=== PATIENT | male | born 1980 | race Caucasian/White ===

== ENCOUNTER 2017-05-13 02:54 | Emergency (ER) | payer SELFPAY ==
[~2017-05-13] VITALS: Ht 185.4 cm; Wt 81.6 kg
[2017-05-13] MEDS ORDERED: LIDOCAINE 1% INJ 20 ML (XYLOCAINE) VIAL INJ ONE (03:45)
[2017-05-13] MEDS ORDERED: ONDANSETRON 4 MG (ZOFRAN) ORAL DISSOLVE TAB ONE (03:51)
[2017-05-13] MEDS ORDERED: ONDANSETRON 4 MG (ZOFRAN) ORAL DISSOLVE TAB PO ONE (04:15)
--- NOTE | 2017-05-13 04:40 | ED General ---
General Chief Complaint: Laceration Stated Complaint: RT FINGER LAC Nursing Triage Note: right index finger laceration Nursing Sepsis Screen: No Definite Risk Source of Information: Patient Exam Limitations: No Limitations History of Present Illness Time Seen by Provider: 03:31 Initial Comments This 36-year-old gentleman presents to the emergency room with a flap laceration to the dorsum of the right index finger. He was drilling a bracket that was not secure. The bracket flung loose causing the laceration on the finger. He reports being up-to-date on his tetanus immunizations. The incident happened about an hour prior to arrival. He appears to maintain full flexion and extension of the finger. Sensation and capillary refill is also intact. He denies any other injury. Allergies and Home Medications Allergies Coded Allergies: No Known Drug Allergies (Unverified , 05/13/17) Home Medications Hydrocodone/Acetaminophen 1 Each Tablet, 1 EACH PO Q6H PRN for PAIN, #[address] [employer] while on this medication. Prescribed by: ADAM BURCIAGA on 05/13/17 0441 Constitutional: no symptoms reported EENTM: no symptoms reported Respiratory: no symptoms reported Cardiovascular: no symptoms reported Gastrointestinal: no symptoms reported Genitourinary: no symptoms reported Musculoskeletal: see HPI Skin: see HPI Psychiatric/Neurological: No Symptoms Reported Hematologic/Lymphatic: No Symptoms Reported Past Bxophxh-Xleala-Prnuyx Hx Patient Social History Alcohol Use: Denies Use Recreational Drug Use: No Smoking Status: Never a Smoker 2nd Hand Smoke Exposure: No Recent Foreign Travel: No Contact w/Someone Who Travel: No Recent Infectious Disease Expo: No Recent Hopitalizations: No Immunizations Up To Date Tetanus Booster (TDap): Less than 5yrs Seasonal Allergies Seasonal Allergies: No Surgeries HX Surgeries: No Respiratory Hx Respiratory Disorders: No Cardiovascular Hx Cardiac Disorders: No Neurological Hx Neurological Disorders: No Gastrointestinal Hx Gastrointestinal Disorders: No Musculoskeletal Hx Musculoskeletal Disorders: No Endocrine Hx Endocrine Disorders: No HEENT HX ENT Disorders: No Cancer Hx Cancer: No Psychosocial Hx Psychiatric Problems: No Family Medical History Significant Family History: No Pertinent Family Hx Physical Exam Vital Signs Vital Sign - Last 12Hours 05/13/17 03:08 Temp 97.7 Pulse 78 Resp 16 B/P (MAP) 128/84 Pulse Ox 100 O2 Delivery Room Air Capillary Refill : Less Than 3 Seconds General Appearance: WD/WN, Mild Distress HEENT: Normal ENT Inspection Neck: Normal Inspection Respiratory: Lungs Clear, Normal Breath Sounds, No Respiratory Distress Cardiovascular: Regular Rate, Rhythm, No Edema, No Murmur Extremity: Other (4 cm flap laceration on the dorsum of the right index finger involving the first PIP joint. Possible tendon injury. Flexion and extension of the finger intact. Distal capillary refill and sensation also intact.) Neurologic/Psychiatric: Alert, Oriented x3, No Motor/Sensory Deficits, Normal Mood/Affect, pediatric orthodontist II-XII Norm as Tested Skin: Normal Color, Warm/Dry, Other (See above) Laceration Repair : Wound Location: Upper Extremities Other Wound Location Right second finger Wound Length (cm): 4 Wound's Depth, Shape: flap, sub Q Wound Explored: small metal flecks on the skin Irrigated w/ Saline (ccs): 500 Betadine Prep?: Yes Anesthesia: 1% Lidocaine (digital block) Volume Anesthetic (ccs): 8 Suture: Prolene Suture Size: 5-0 Number of Sutures: 7 Sterile Dressing Applied?: Yes Progress/Results/Core Measures Results/Orders My Orders Orders - ADAM RODRIGUEZ MD Lidocaine 1% Injection (Xylocaine 1% Inj (05/13/17 03:45) Ondansetron Oral Dissolve Tab (Zofran (05/13/17 03:51) Ondansetron Oral Dissolve Tab (Zofran (05/13/17 04:15) Ibuprofen Tablet (Motrin Tablet) (05/13/17 04:45) Medications Given in ED Current Medications Medications Dose Ordered Sig/Ulisses Route Start Time Stop Time Status Last Admin Dose Admin Ibuprofen 800 mg ONCE ONCE PO 05/13/17 04:45 05/13/17 04:46 DC 05/13/17 04:47 800 MG Lidocaine HCl 20 ml ONCE ONCE INJ 05/13/17 03:45 05/13/17 03:46 DC 05/13/17 03:45 20 ML Ondansetron HCl 4 mg ONCE ONCE PO 05/13/17 04:15 05/13/17 04:16 DC 05/13/17 04:00 4 MG Vital Signs/I&O Vital Sign - Last 12Hours 05/13/17 05/13/17 05/13/17 03:08 04:47 06:25 Temp 97.7 97.7 Pulse 78 0 Resp 16 0 B/P (MAP) 128/84 Pulse Ox 100 0 O2 Delivery Room Air Blood Pressure Mean: 99 Progress Note : Progress Note Digital block was used to anesthetize the finger. Skin was cleaned with alcohol wipes. Wound was irrigated with 500 mL normal saline. Betadine was applied and wound was approximated with 5-0 Prolene suture. Procedure was performed along with Hiren Zheng, MS4 under my supervision. Patient was given ibuprofen 800 mg prior to dismissal for initial pain management. Although range of motion was intact, there was suspicion of tendon involvement based on examination. Patient was advised to follow up with hand surgeon. Dr. Rodriguez was suggested locally, but patient states there is a hand surgeon in his home town in [place] who he intends to see. He is returning home tomorrow. Departure Impression Impression: Primary Impression: Laceration of finger Qualified Codes: S61.210A - Laceration without foreign body of right index finger without damage to nail, initial encounter Disposition: HOME, SELF-CARE Condition: Improved Departure-Patient Inst. Decision time for Depature: 04:00 Referrals: NO,LOCAL PHYSICIAN (PCP) Primary Care Physician Patient Instructions: Laceration Repair With Stitches (DC) Add. Discharge Instructions: Keep the wound clean and dry except for normal showering and handwashing. Avoid scrubbing directly over the sutures. Avoid submersion until sutures are removed. Antibiotic ointment may be used to prevent dressing from sticking to the wound. Cover the wound when sleeping or active to prevent sutures from snagging. The aluminum splint can be molded and taped to the finger to keep it in proper position while healing. Monitor the wound for signs of infection such as increasing redness, increasing pain, fever, puslike drainage, etc. Return to care promptly if you notice these symptoms. Because of the depth of the wound and possible injury to the joint or tendons, I recommend evaluation by a hand surgeon. Dr. Rodriguez's contact information has been provided below. Please contact a hand surgeon as soon as possible to schedule follow-up. You may take ibuprofen up to 800 mg every 8 hours as needed for pain. Use hydrocodone as prescribed for pain not controlled by ibuprofen. Elevated to the level of your heart is much as possible to help with pain and swelling. Have the sutures removed in about 10 days. All discharge instructions reviewed with patient and/or family. Voiced understanding. Scripts Hydrocodone/Acetaminophen (Hydrocodon -Acetaminophen 5-325) 1 Each Tablet 1 EACH PO Q6H Y for PAIN, #[address] or [address] [employer] while on this medication. Prov: ADAM RODRIGUEZ MD 05/13/17 ADAM RODRIGUEZ MD May 13, 2017 04:40
[2017-05-13] MEDS ORDERED: HYDR-3812 PO (04:41)
[2017-05-13] MEDS ORDERED: IBUPROFEN 800 MG (MOTRIN) TAB PO ONE (04:45)
[2017-05-13 06:25] VITALS: BP 0/0
== END 2017-05-13 04:51 | disposition home or self-care (01) ==
LOC: ER 02:59
DX: S61.220A Laceration with foreign body of right index finger without damage to nail, initial encounter (principal); W26.8XXA Contact with other sharp object(s), not elsewhere classified, initial encounter
CPT/HCPCS: 12002; 64450